=== PATIENT | female | born 1990 | race Two or more races ===

== ENCOUNTER 2016-09-01 22:35 | Inpatient (IN) | payer OTHER ==
[~2016-09-01] VITALS: Ht 165.1 cm; Wt 49.9 kg
[2016-09-01] MEDS ORDERED: MAGNESIUM HYDROXIDE 30 ML UDC PO PRN (23:00)
[2016-09-01] MEDS ORDERED: Z GUARD REMEDY 2 OZ OINT TP PRN (23:00)
[2016-09-01] MEDS ORDERED: CEFTRIAXONE 1 G in IV D5W 50 ML IV SCH (23:00)
[2016-09-01] MEDS ORDERED: MAG HYDROX/AL HYDROX/SIMETH 30 ML UDC PO PRN (23:00)
[2016-09-01] MEDS ORDERED: ONDANSETRON HCL/PF 4 MG/2 ML VIAL IVP PRN (23:00)
[2016-09-01] MEDS ORDERED: ZOLPIDEM TARTRATE 5 MG TABLET PO PRN (23:00)
[2016-09-01] MEDS ORDERED: ACETAMINOPHEN 325 MG TABLET PO PRN (23:00)
[2016-09-01 23:04] VITALS: BP 113/69
--- NOTE | 2016-09-01 23:04 | NUR ---
TELE OPENING NOTES: RECEIVED PT FROM [facility] IN [facility]. PT SHOWS NO SIGNS OR SYMPTOMS OF DISTRESS NOTED AT THIS TIME. RECEIVED REPORT FROM [facility] THAT TYLENOL 750MG IV WAS GIVEN, ROCEPHIN 2G, AND TOTAL OF 2L NS BOLUS. PT HAS IV R AC 18G AND IS PATENT AND INTACT AND IS BEING INFUSED WITH IV 0.9% NS 1,000ML AT 100ML/HR. MRSA SWAB DONE. PT'S VITAL SIGNS ARE STABLE. WILL CONTINUE TO MONITOR PT.
--- NOTE | 2016-09-01 23:04 | NUR ---
FRAUD MANAGER NOTES: NOTED REDNESS IN PT'S R EYE. PT REPORTED THAT IT RESULTED FROM HER MIGRAINE.
[2016-09-01 23:44] VITALS: BP 113/69
--- NOTE | 2016-09-02 | NUR ---
ATHLETIC COORDINATOR NOTES: CALL LIGHT WITHIN PT'S REACH. BED KEPT IN LOCKED, LOWEST POSITION, AND SIDE RAILS X 2 UP. CHARGE NURSE AWARE THAT I NON-ADMINISTERED ROCEPHIN. PT RECEIVED ROCEPHIN 2G AT [facility]. WILL CONTINUE TO MONITOR PT.
[2016-09-02] MEDS ORDERED: IV SET PRIMARY PUMP SET 1 EA INFUS.SET MC ONE (00:25)
[2016-09-02] MEDS ORDERED: IV NS 0.9% 1,000 ML ONE (00:25)
[2016-09-02] MEDS: IV NS 0.9% 1,000 ML IV PRN ×2 (00:33→11:42)
[2016-09-02 04:00] VITALS: BP 112/65
[2016-09-02] MEDS ORDERED: MORPHINE SULFATE INJ 2 MG/ML DISP.SYRIN ONE (05:51)
[2016-09-02] MEDS: MORPHINE SULFATE INJ 2 MG/ML DISP.SYRIN IV PRN ×4 (05:59→23:14)
--- NOTE | 2016-09-02 05:59 | NUR ---
SOFTWARE QUALITY MANAGER NOTES: PT COMPLAINED OF LOWER BACK PAIN RADIATING TO UPPER BACK 10/31. PT REQUESTED FOR PAIN MEDICATION. VITALS ARE: 112/78 HR 101, PULSE OX 100%, RR 18, TEMP 98.2 . MORPHINE 2MG IV WAS GIVEN. WILL CONTINUE TO MONITOR PT.
[2016-09-02 06:29] VITALS: BP 108/70
--- NOTE | 2016-09-02 07:13 | NUR ---
AQUACULTURE AND FISHERIES PROFESSOR CLOSING NOTES: ALL NEEDS WERE ATTENDED AND ANTICIPATED FOR. PT REPORTED THAT HER PAIN LEVEL WENT DOWN AFTER THE MORPHINE ADMINISTRATION. CALL LIGHT WITHIN PT'S REACH. BED KEPT IN LOCKED, LOWEST POSITION, AND SIDE RAILS X 2 UP. IV IS BEING INFUSED WITH NS 1,000ML AT 100ML/HR. ENDORSED TO AM NURSE FOR ROSELYN.
--- NOTE | 2016-09-02 07:14 | NUR ---
SAMPLE PREPARATION SUPERVISOR CLOSING NOTES: PT ON TELE MONITOR AND IS SR 88.
[2016-09-02 07:17] LABS: BASOPHILS % (AUTO) 0.3 % (0.0-2.0); EOSINOPHILS % (AUTO) 0.5 % (0.0-6.0); HEMATOCRIT 31 % (33-45); HEMOGLOBIN 10.4 g/dL (11.5-14.8); MEAN CORPUSCULAR HEMOGLOBIN 29 PG (26.0-33.0); MEAN CORPUSCULAR HGB CONC 34 g/dl (31.0-36.0); MEAN CORPUSCULAR VOLUME 86 fL (82-100); MONOCYTES # (AUTO) 0.6 /CMM (0.1-1.30); MONOCYTES % (AUTO) 7.8 % (2.0-12.0); NEUTROPHILS % (AUTO) 78.4 % (43.0-81.0); PLATELET COUNT (AUTO) 241 /CMM (150-450); RDW COEFFICIENT OF VARIATION 15.5 (11.5-15.0); RED BLOOD CELL COUNT(AUTO) 3.57 MIL/uL (4.0-5.2); WHITE BLOOD COUNT (AUTO) 7.7 K/uL (4.3-11.0)
--- NOTE | 2016-09-02 07:34 | NUR ---
HUMAN RESOURCES BENEFITS ASSISTANT OPENING NOTES RECEIVED PT. IN BED, AWAKE, HOB ELEVATED, NO SOB OR DISTRESS NOTED. A/O X4 VERBALLY RESPONSIVE AND ABLE TO MAKE NEEDS KNOWN. IV INTACT AND PATENT. KEPT PATIENT CLEAN AND COMFORTABLE IN BED, CALL LIGHT WITHIN PATIENT REACH, WILL CONTINUE TO MONITOR ACCORDINGLY.
[2016-09-02 07:40] LABS: ALBUMIN 2.8 g/dL (3.4-5.0); BILIRUBIN,TOTAL 0.4 mg/dL (0.2-1.0); CALCIUM, SERUM 7.8 mg/dL (8.5-10.1); CREATININE 0.7 mg/dL (0.6-1.3); MAGNESIUM 1.8 mg/dL (1.8-2.4); PHOSPHORUS 4.2 mg/dL (2.5-4.9); POTASSIUM 3.9 mmol/L (3.5-5.1); TOTAL PROTEIN, SERUM 6.3 g/dL (6.4-8.2)
[2016-09-02] MEDS: PANTOPRAZOLE 40 MG TABLET.DR PO SCH (08:14)
[2016-09-02 11:19] LABS: AMYLASE 69 U/L (25-115); LIPASE 149 U/L (73-393)
--- NOTE | 2016-09-02 12:47 | NUR ---
SPOKE WITH ROSALIA GNOG. AWAITING TEST RESULTS PRIOR TO COMPLETING CT ABDOMEN PELVIS WITHOUT CONTRAST. RN WILL CALL WHEN PATIENT IS READY.
[2016-09-02 14:55] LABS: APPEARANCE,URINE SL CLOUDY (CLEAR); BILIRUBIN,URINE NEGATIVE (NEGATIVE); BLOOD, URINE 1+ Ery/uL (NEGATIVE); COLOR,URINE YELLOW (YELLOW); KETONES,URINE NEGATIVE (NEGATIVE); LEUKOCYTE ESTERASE ,URINE 1+ (NEGATIVE); NITRITE, URINE NEGATIVE (NEGATIVE); PH,URINE 5.5 (5.0-8.0); PROTEIN,URINE NEGATIVE (NEGATIVE); UGLUCOSE NEGATIVE (NEGATIVE); UROBILINOGEN,URINE 0.2 EU/dL (0.2)
[2016-09-02 15:03] LABS: BACTERIA,URINE 1+ /HPF (None Seen)
[2016-09-02 16:00] VITALS: BP 117/71
--- NOTE | 2016-09-02 19:00 | NUR ---
MS RN OPENING NOTES: RECEIVED PT IN BED AND IS AWAKE, A/O X 4. FAMILY MEMBERS AT BEDSIDE. PT HAS IV ON R AC 18G AND IS BEING INFUSED WITH IV NS 1,000ML AT 100ML/HR. CALL LIGHT WITHIN PT'S REACH. BED KEPT IN LOCKED, LOWEST POSITION, AND SIDE RAILS X 2 UP. NO S/S OF DISTRESS NOTED AT THIS TIME. WILL CONTINUE TO MONITOR PT.
--- NOTE | 2016-09-02 19:28 | NUR ---
RN CLOSING NOTES ALL NEEDS PROVIDED, ATTENDED, AND ANTICIPATED. KEPT PATIENT CLEAN AND COMFORTABLE IN BED. CALL LIGHT WITHIN PATIENT REACH, WILL CONTINUE TO MONITOR ACCORDINGLY. ENDORSED TO NEXT SHIFT RN TO CONTINUE CARE
--- NOTE | 2016-09-02 19:29 | NUR ---
RN NOTES PATIENT WAS BLEEDING WHEN SHE WAS URINATING. CHARGE NURSE JESSE AWARE AND SHE SAID TO ENCOURAGE HER TO DRINK MORE WATER AND CRANBERRY JUICE AND KEEP MONITORING HER.
[2016-09-02] MEDS ORDERED: SECONDARY IV SET 1 EA INFUS.SET MC ONE (19:58)
[2016-09-02 20:00] VITALS: BP 124/72
[2016-09-02] MEDS: CEFTRIAXONE 1 G in IV D5W 50 ML IV SCH (20:03)
--- NOTE | 2016-09-02 21:53 | NUR ---
MS RN NOTES: PT HAD HEMATURIA SHOWN IN THE HAT. PAGED DR. MCKEON ABOUT BLOOD IN URINE.
--- NOTE | 2016-09-02 22:02 | NUR ---
MS RN NOTES: SPOKE TO DR. MCKEON AND HE ORDERED FOR A UA AND URINE CULTURE AND TO MONITOR PT'S URINE.
--- NOTE | 2016-09-02 23:14 | NUR ---
MS RN NOTES: PT COMPLAINED OF 9/10 BACK AND AB PAIN. PT WAS ADMINISTERED MORPHINE 2MG IV. PT'S BP WAS 114/56, HR 96. WILL CONTINUE TO MONITOR PT.
[2016-09-03 01:48] LABS: APPEARANCE,URINE SL CLOUDY (CLEAR); BILIRUBIN,URINE NEGATIVE (NEGATIVE); BLOOD, URINE 3+ Ery/uL (NEGATIVE); COLOR,URINE YELLOW (YELLOW); KETONES,URINE NEGATIVE (NEGATIVE); LEUKOCYTE ESTERASE ,URINE NEGATIVE (NEGATIVE); NITRITE, URINE NEGATIVE (NEGATIVE); PH,URINE 5.5 (5.0-8.0); PROTEIN,URINE NEGATIVE (NEGATIVE); UGLUCOSE NEGATIVE (NEGATIVE); UROBILINOGEN,URINE 0.2 EU/dL (0.2)
[2016-09-03 02:04] LABS: BACTERIA,URINE None seen /HPF (None Seen); RBC,URINE 81-100 /HPF (0-2); SQUAMOUS EPITHELIAL CELL,UR Few /HPF (None Seen)
[2016-09-03] MEDS: IV NS 0.9% 1,000 ML IV PRN ×2 (03:24→21:46)
[2016-09-03] MEDS: MORPHINE SULFATE INJ 2 MG/ML DISP.SYRIN IV PRN (05:42)
--- NOTE | 2016-09-03 05:42 | NUR ---
MS RN NOTES: PT'S BP WAS 116/76 HR 84. PT COMPLAINED OF 8/10 AB AND BACK PAIN. PT WAS ADMINISTERED MORPHINE IV. WILL CONTINUE TO MONITOR PT.
[2016-09-03 06:56] LABS: BASOPHILS % (AUTO) 0.3 % (0.0-2.0); EOSINOPHILS # (AUTO) 0.1 /CMM (0.0-0.7); EOSINOPHILS % (AUTO) 0.7 % (0.0-6.0); HEMATOCRIT 31 % (33-45); HEMOGLOBIN 10.8 g/dL (11.5-14.8); LYMPHOCYTES # (AUTO) 1.6 /CMM (0.8-4.8); LYMPHOCYTES % (AUTO) 21.1 % (20.0-44.0); MEAN CORPUSCULAR HEMOGLOBIN 30 PG (26.0-33.0); MEAN CORPUSCULAR HGB CONC 35 g/dl (31.0-36.0); MEAN CORPUSCULAR VOLUME 86 fL (82-100); MONOCYTES # (AUTO) 0.5 /CMM (0.1-1.30); MONOCYTES % (AUTO) 6.8 % (2.0-12.0); NEUTROPHILS # (AUTO) 5.4 /CMM (1.8-8.9); NEUTROPHILS % (AUTO) 71.1 % (43.0-81.0); PLATELET COUNT (AUTO) 254 /CMM (150-450); RDW COEFFICIENT OF VARIATION 15.9 (11.5-15.0); RED BLOOD CELL COUNT(AUTO) 3.62 MIL/uL (4.0-5.2); WHITE BLOOD COUNT (AUTO) 7.6 K/uL (4.3-11.0)
[2016-09-03 07:15] LABS: CALCIUM, SERUM 7.8 mg/dL (8.5-10.1); CREATININE 0.6 mg/dL (0.6-1.3); MAGNESIUM 1.8 mg/dL (1.8-2.4); PHOSPHORUS 4.3 mg/dL (2.5-4.9); POTASSIUM 3.8 mmol/L (3.5-5.1)
--- NOTE | 2016-09-03 07:15 | NUR ---
RN MS CLOSING NOTES: ALL NEEDS WERE ATTENDED AND ANTICIPATED FOR. NO SIGNS OR SYMPTOMS OF DISTRESS NOTED AT THIS TIME. PT IS IN BED ASLEEP AND IS RESTING IN BED. PT IS A/O X4. CALL LIGHT WITHIN PT'S REACH. BED KEPT IN LOCKED, LOWEST POSITION, AND SIDE RAILS X 2 UP. ENDORSED TO AM NURSE FOR ROSELYN.
--- NOTE | 2016-09-03 07:23 | NUR ---
GREEN MEAT GRADER OPENING NOTES RECEIVED PT. IN BED, AWAKE, HOB ELEVATED, NO SOB OR DISTRESS NOTED. A/O X4 VERBALLY RESPONSIVE AND ABLE TO MAKE NEEDS KNOWN. IV INTACT AND PATENT. KEPT PATIENT CLEAN AND COMFORTABLE IN BED, CALL LIGHT WITHIN PATIENT REACH, WILL CONTINUE TO MONITOR ACCORDINGLY
[2016-09-03] MEDS: PANTOPRAZOLE 40 MG TABLET.DR PO SCH (07:56)
[2016-09-03 08:00] VITALS: BP 105/58
--- NOTE | 2016-09-03 11:30 | NUR ---
RN MS NOTES MOM AT THE BEDSIDE.
[2016-09-03] MEDS: HYDROCODONE/APAP 5/325MG 1 EACH TABLET PO PRN ×2 (12:33→21:42)
--- NOTE | 2016-09-03 12:35 | NUR ---
RN NOTES PATIENT IS ASLEEP WITH NO SIGNS OF SOB, DISTRESS OR PAIN NOTED.
[2016-09-03 16:00] VITALS: BP 117/75
--- NOTE | 2016-09-03 19:30 | NUR ---
RN NOTES: -RECEIVED LYING COMFORTABLY IN BED,ALERT AND COHERENT X4 WITH BRP,IVF OF NS AT 100CC/HR ONGOING ATTACHED TO RIGHT AC G-18, PATENT, NO PAIN AND DISCOMFORT UPON ENDORSEMENT,KEPT COMFORTABLE IN BED, CALL LIGHT WITHIN EASY REACH, FALL AND SAFETY PRECAUTION OBSERVE.
[2016-09-03 20:00] VITALS: BP 106/67
[2016-09-03] MEDS: CEFTRIAXONE 1 G in IV D5W 50 ML IV SCH (20:32)
--- NOTE | 2016-09-03 21:45 | NUR ---
RN NOTES: -AT 2141 COMPLAINED OF ABDOMINAL PAIN OF 6/10, OFFERED ORAL PAIN RELIEVER, SHE AGREED,NON PHARMACOLOGIC INTERVENTION RENDERED,BACK RUB AND WARM BLANKET,CALL LIGHT WITHIN REACH, ASSISTED TO BATHROOM.
--- NOTE | 2016-09-03 21:50 | NUR ---
RN NOTES: AWAKE,SHE HAS A VISITOR, IVF CONSUMED, NEW BAG STARTED NS AT 100ML/HR VIA PUMP.KEPT ON CLOSE WATCH.
[2016-09-04] MEDS: MORPHINE SULFATE INJ 2 MG/ML DISP.SYRIN IV PRN ×3 (00:40→20:01)
--- NOTE | 2016-09-04 00:40 | NUR ---
RN NOTES; PATIENT WAS RELIEVED ONLY FOR FEW HOURS AGAIN PAIN INCREASE 10/10,SHE REQUEST FOR MORPHINE, BPR-113/62 VT-81,IV FLUIDS 100CC/HR ONGOING, IV/PRN FOR PAIN GIVEN.CALL LIGHT WITHIN REACH.
--- NOTE | 2016-09-04 02:10 | NUR ---
RN NOTES: PATIENT FALL ASLEEP,KEPT IN COMFORTABLE POSITION,CALL LIGHT WITHIN REACH.
--- NOTE | 2016-09-04 06:21 | NUR ---
RN NOTES: -ABLE TO SLEEP WELL AFTER HER IV/PAIN RELIEVER, ENDORSED ASLEEP FOR CONTINUITY OF CARE, CALL LIGHT WITHIN REACH.
--- NOTE | 2016-09-04 07:30 | NUR ---
RECEIVED PT. ALERT AND ORIENTED X4.
[2016-09-04 08:00] VITALS: BP 105/69
[2016-09-04] MEDS: PANTOPRAZOLE 40 MG TABLET.DR PO SCH (08:10)
--- NOTE | 2016-09-04 08:10 | NUR ---
MEDICATED FOR ABD. PAIN WITH MORPHINE.[place] HOFF TO SEE PT.
[2016-09-04] MEDS: IV NS 0.9% 1,000 ML IV PRN (08:51)
[2016-09-04] MEDS: IBUPROFEN 400 MG TABLET PO PRN (10:04)
--- NOTE | 2016-09-04 10:04 | NUR ---
MED. WITH MOTRIN FOR DISCOMFORT.
--- NOTE | 2016-09-04 12:45 | NUR ---
CASE MGMT. IN TO SPEAK WITH PT. REGARDING DC PLANNING. Addendum: 09/04/16 at 1458 by JODY BOWLING RN ABOVE NOTE MEANT FOR ANOTHER PT.
--- NOTE | 2016-09-04 12:45 | NUR ---
giovanni franco nurse in with [employer] plans staff officer and dressing changed to rt. foot.tolerated well. Addendum: 09/04/16 at 1452 by JODY BOWLING RN ABOVE NOTE INCORRECT TO BE ON DIFFERENT PT.
[2016-09-04 16:00] VITALS: BP 130/77
--- NOTE | 2016-09-04 16:30 | NUR ---
RESTING IN BED.
--- NOTE | 2016-09-04 18:00 | NUR ---
GOOD EFFECT WITH MOTRIN-NO FURTHER PAIN MED THIS SHIFT.
--- NOTE | 2016-09-04 19:30 | NUR ---
RN OPENING NOTES RECEIVED REPORT FROM RALPH RNJODY. FOUND Pt AWAKE RESTING IN BED. NO S/S OF ACUTE DISTRESS OR SOB NOTED. Pt IS A/OX4, VERBAL, ABLE TO MAKE NEEDS KNOWN. Pt C/O PAIN AND IS REQUESTING FOR MORPHINE. WILL ADMINISTER WHEN TIME IS DUE. IV ACCESS ON RAC #18G, IVF NS @100ML/HR. SAFETY MEASURES IN PLACE. BED LOW, LOCKED, HOB ELEVATED, SIDE RAILS UP, CALL LIGHT AND BEDSIDE TABLE WITHIN REACH. WILL CONTINUE TO MONITOR Pt THROUGHOUT THE NIGHT FOR SAFETY.
[2016-09-04 20:00] VITALS: BP 118/69
[2016-09-04] MEDS: CEFTRIAXONE 1 G in IV D5W 50 ML IV SCH (21:48)
[2016-09-04 22:00] VITALS: BP 118/69
--- NOTE | 2016-09-05 06:34 | NUR ---
RN CLOSING NOTES NO SIGNIFICANT CHANGES NOTED DURING THE NIGHT. ALL NEEDS MET AND ATTENDED TO. NO S/S OF ACUTE DISTRESS OR SOB NOTED. SAFETY MEASURES IN PLACE. WILL ENDORSE TO DAYSHIFT RN FOR Pt's ROSELYN.
[2016-09-05] MEDS: IV NS 0.9% 1,000 ML IV PRN (07:00)
[2016-09-05] MEDS: IBUPROFEN 400 MG TABLET PO PRN (07:05)
[2016-09-05 08:00] VITALS: BP 108/62
[2016-09-05] MEDS ORDERED: HYDR-3652 PO (08:06)
[2016-09-05] MEDS ORDERED: SULF1TAB48 PO (08:06)
[2016-09-05] MEDS: PANTOPRAZOLE 40 MG TABLET.DR PO SCH (09:13)
--- NOTE | 2016-09-05 12:00 | NUR ---
PT PICKED UP BY FAMILY MOTHER, DISCHARGE INSTRUCTION GIVEN, IV D/C, PT IN STABLE CONDITION
== END 2016-09-05 11:55 | disposition home or self-care (01) | DRG 463 ==
LOC: TELE 23:40 → MED 09-02 10:55
PROVIDERS: ADMIT Family Medicine; ATTEND Family Medicine
DX: N39.0 Urinary tract infection, site not specified (principal); E44.0 Moderate protein-calorie malnutrition; N20.0 Calculus of kidney; E83.51 Hypocalcemia; R63.0 Anorexia; E88.09 Other disorders of plasma-protein metabolism, not elsewhere classified; D64.9 Anemia, unspecified; Z68.1 Body mass index [BMI] 19.9 or less, adult; B96.89 Other specified bacterial agents as the cause of diseases classified elsewhere; R31.9 Hematuria, unspecified; F32.9 Major depressive disorder, single episode, unspecified
CPT/HCPCS: 36415; 80048-TC; 80053-TC; 81000-TC; 82150-TC; 83605-TC; 83690-TC; 83735-TC; 84100-TC; 84703-TC; 85025-TC; 87040-TC; 87081-TC; 87086-TC; J0696; J2270; J7030; J7060; Z7610

== ENCOUNTER 2016-12-02 18:57 | Emergency (ER) | payer OTHER ==
[~2016-12-02] VITALS: Ht 165.1 cm; Wt 57.6 kg
[~2016-12-02 18:57] MED LIST: HYDR-3652 PO; SULF1TAB48 PO
--- NOTE | 2016-12-02 19:55 | NUR ---
TO BED 4 AMBULATORY C/O INTERMITTENT BILATERAL FLANK PAIN X1 MONTH. PT AAOX4 NO ACUTE DISTRESS NOTED, RESP EVEN AND UNLABORED. URINE SAMPLE COLLECTED. PENDING ER MD CARRERA.
[2016-12-02 20:00] LABS: APPEARANCE,URINE Cloudy (CLEAR); BILIRUBIN,URINE SMALL (NEGATIVE); BLOOD, URINE Moderate Ery/uL (NEGATIVE); COLOR,URINE Dark (YELLOW); KETONES,URINE 40 (NEGATIVE); LEUKOCYTE ESTERASE ,URINE Trace (NEGATIVE); NITRITE, URINE Positive (NEGATIVE); PROTEIN,URINE 100 mg/dl (NEGATIVE); UGLUCOSE Negative (NEGATIVE)
[2016-12-02] MEDS ORDERED: ONDANSETRON HCL/PF 4 MG/2 ML VIAL IVP ONE (20:00)
[2016-12-02] MEDS ORDERED: MORPHINE SULFATE INJ 2 MG/ML DISP.SYRIN IV ONE (20:00)
[2016-12-02] MEDS ORDERED: IV NS 0.9% 1,000 ML BAG IV ONE (20:00)
[2016-12-02] MEDS ORDERED: KETOROLAC TROMETHAMINE INJ 30 MG/ML VIAL IV ONE (20:00)
[2016-12-02] MEDS ORDERED: KETOROLAC TROMETHAMINE INJ 30 MG/ML VIAL ONE (20:02)
[2016-12-02] MEDS ORDERED: MORPHINE SULFATE INJ 4 MG/ML DISP.SYRIN ONE (20:03)
[2016-12-02] MEDS ORDERED: ONDANSETRON HCL/PF 4 MG/2 ML VIAL ONE (20:03)
[2016-12-02 20:04] LABS: BASOPHILS % (AUTO) 0.7 % (0.0-2.0); EOSINOPHILS % (AUTO) 0.8 % (0.0-6.0); HEMATOCRIT 35 % (33-45); HEMOGLOBIN 11.3 g/dL (11.5-14.8); LYMPHOCYTES # (AUTO) 1.6 /CMM (0.8-4.8); LYMPHOCYTES % (AUTO) 28.3 % (20.0-44.0); MEAN CORPUSCULAR HEMOGLOBIN 26 PG (26.0-33.0); MEAN CORPUSCULAR HGB CONC 32 g/dl (31.0-36.0); MEAN CORPUSCULAR VOLUME 81 fL (82-100); MONOCYTES # (AUTO) 0.4 /CMM (0.1-1.30); MONOCYTES % (AUTO) 7.1 % (2.0-12.0); NEUTROPHILS # (AUTO) 3.6 /CMM (1.8-8.9); NEUTROPHILS % (AUTO) 63.1 % (43.0-81.0); PLATELET COUNT (AUTO) 382 /CMM (150-450); RDW COEFFICIENT OF VARIATION 15.9 (11.5-15.0); RED BLOOD CELL COUNT(AUTO) 4.33 MIL/uL (4.0-5.2); WHITE BLOOD COUNT (AUTO) 5.6 K/uL (4.3-11.0)
[2016-12-02 20:07] LABS: PREGNANCY TEST URINE QUAL NEGATIVE (NEGATIVE)
--- NOTE | 2016-12-02 20:09 | NUR ---
TP MEDICATED BY RN PER ER MD ORDER.
[2016-12-02 20:12] LABS: CALCIUM, SERUM 8.9 mg/dL (8.5-10.1); CREATININE 0.8 mg/dL (0.6-1.3); POTASSIUM 3.2 mmol/L (3.5-5.1)
[2016-12-02 20:18] LABS: BACTERIA,URINE 3+ /HPF (None Seen); MUCUS,URINE Moderate /LPF (None Seen); SQUAMOUS EPITHELIAL CELL,UR Many /HPF (None Seen); URINE AMORPHOUS URATE Moderate /HPF (None Seen); WBC,URINE 51-80 /HPF (0-3)
[2016-12-02] MEDS ORDERED: CEFTRIAXONE 1GM BAG (ER ONLY) 50 ML IV ONE (20:29)
[2016-12-02] MEDS ORDERED: CEFTRIAXONE 1GM BAG (ER ONLY) 1 GM/50 ML PIGGYBACK IV ONE (20:30)
--- NOTE | 2016-12-02 21:34 | NUR ---
Patient discharged to home in stable condition. Written and verbal after care instructions given. Patient verbalizes understanding of instruction. ambulatory with a steady gait noted. pt aaox4 no acute distress noted, resp even and unlabored. advice pt not to drive or operate any machinery due to pt was given anrcotic medicine. pt verbalize understanding.
[2016-12-02 21:35] VITALS: BP 132/69
== END 2016-12-02 21:36 | disposition home or self-care (01) ==
LOC: ER 18:58
DX: S39.011A Strain of muscle, fascia and tendon of abdomen, initial encounter (principal); N12 Tubulo-interstitial nephritis, not specified as acute or chronic; F32.9 Major depressive disorder, single episode, unspecified; Z88.8 Allergy status to other drugs, medicaments and biological substances; K29.70 Gastritis, unspecified, without bleeding; X58.XXXA Exposure to other specified factors, initial encounter; Y93.89 Activity, other specified; Y92.89 Other specified places as the place of occurrence of the external cause; Y99.9 Unspecified external cause status
CPT/HCPCS: 36415; 80048; 81001; 84703; 85025; 87040 ×2; 87077; 87086; 87186; 96365; 96375; 99284; A4606; J0696; J1885; J2270; J2405; J7030; Z7610; 81000-TC

== ENCOUNTER 2017-03-18 16:04 | Emergency (ER) | payer OTHER ==
[~2017-03-18] VITALS: Ht 165.1 cm; Wt 54.4 kg
[~2017-03-18 16:04] MED LIST changes: -HYDR-3652 PO; +HYDR-4209 PO
--- NOTE | 2017-03-18 16:04 | NUR ---
LOW BACK PAIN X 2 DAYS, DYSURIA X 3 WKS. NAD NOTED. PT AAO X4, AMB WITH STEADY GAIT. RR EVEN AND UNLABORED. VSS. URINE SAMPLE PROVIDED. GOPAL FLAT SORTER PROCESSOR AT BEDSIDE FOR EVAL.
[2017-03-18 16:27] LABS: APPEARANCE,URINE Clear (CLEAR); BILIRUBIN,URINE Negative (NEGATIVE); BLOOD, URINE Moderate Ery/uL (NEGATIVE); COLOR,URINE Yellow (YELLOW); KETONES,URINE Trace (NEGATIVE); LEUKOCYTE ESTERASE ,URINE Negative (NEGATIVE); NITRITE, URINE Negative (NEGATIVE); PH,URINE 5.5 (5.0-8.0); PROTEIN,URINE Trace mg/dl (NEGATIVE); UGLUCOSE Negative (NEGATIVE); UROBILINOGEN,URINE 0.2 EU/dL (0.2)
[2017-03-18 16:29] LABS: BACTERIA,URINE Few /HPF (None Seen); RBC,URINE 0-2 /HPF (0-2)
[2017-03-18] MEDS ORDERED: MORPHINE SULFATE INJ 4 MG/ML DISP.SYRIN ONE (16:29)
[2017-03-18 16:30] LABS: SQUAMOUS EPITHELIAL CELL,UR Moderate /HPF (None Seen)
[2017-03-18] MEDS ORDERED: ONDANSETRON HCL/PF 4 MG/2 ML VIAL IVP ONE (16:30)
[2017-03-18] MEDS ORDERED: ACETAMINOPHEN ES 500 MG TABLET PO ONE (16:30)
[2017-03-18] MEDS ORDERED: ONDANSETRON 4 MG TAB.RAPDIS ONE (16:30)
[2017-03-18] MEDS ORDERED: MORPHINE SULFATE INJ 2 MG/ML DISP.SYRIN IV ONE (16:30)
[2017-03-18] MEDS ORDERED: IV NS 0.9% 1,000 ML BAG IV ONE (16:30)
[2017-03-18] MEDS ORDERED: ACETAMINOPHEN ES 500 MG TABLET ONE (16:30)
[2017-03-18] MEDS ORDERED: ONDANSETRON HCL/PF 4 MG/2 ML VIAL ONE (16:34)
[2017-03-18 16:46] LABS: BASOPHILS % (AUTO) 0.6 % (0.0-2.0); EOSINOPHILS % (AUTO) 0.1 % (0.0-6.0); HEMATOCRIT 32 % (33-45); HEMOGLOBIN 10.9 g/dL (11.5-14.8); LYMPHOCYTES # (AUTO) 0.7 /CMM (0.8-4.8); MEAN CORPUSCULAR HEMOGLOBIN 26 PG (26.0-33.0); MEAN CORPUSCULAR HGB CONC 34 g/dl (31.0-36.0); MEAN CORPUSCULAR VOLUME 78 fL (82-100); MONOCYTES # (AUTO) 0.4 /CMM (0.1-1.30); MONOCYTES % (AUTO) 6.3 % (2.0-12.0); NEUTROPHILS # (AUTO) 4.6 /CMM (1.8-8.9); PLATELET COUNT (AUTO) 364 /CMM (150-450); RDW COEFFICIENT OF VARIATION 16.4 (11.5-15.0); RED BLOOD CELL COUNT(AUTO) 4.14 MIL/uL (4.0-5.2); WHITE BLOOD COUNT (AUTO) 5.7 K/uL (4.3-11.0)
[2017-03-18 16:56] LABS: CALCIUM, SERUM 8.1 mg/dL (8.5-10.1); CREATININE 0.7 mg/dL (0.6-1.3); POTASSIUM 3.6 mmol/L (3.5-5.1)
[2017-03-18 17:18] VITALS: BP 124/68
== END 2017-03-18 17:31 | disposition home or self-care (01) ==
LOC: ER 16:07
DX: N12 Tubulo-interstitial nephritis, not specified as acute or chronic (principal); J11.1 Influenza due to unidentified influenza virus with other respiratory manifestations; F32.9 Major depressive disorder, single episode, unspecified; Z88.8 Allergy status to other drugs, medicaments and biological substances
CPT/HCPCS: 36415; 80048; 81001; 84703; 85025; 87086; 96361; 96374; 96375; 99284; J2270; J2405; J7030; Q0162; 81000-TC

== ENCOUNTER 2017-03-23 01:12 | Emergency (ER) | payer OTHER ==
[~2017-03-23] VITALS: Ht 165.1 cm; Wt 54.4 kg
[~2017-03-23 01:12] MED LIST changes: +HYDR-3652 PO; -HYDR-4209 PO
--- NOTE | 2017-03-23 01:50 | NUR ---
CALLED PT IN WR X 3, NO RESPONSE , PER ADMITTING PT STEPPED OUT.
[2017-03-23 02:06] VITALS: BP 129/81
[2017-03-23 02:52] LABS: APPEARANCE,URINE CLEAR (CLEAR); BILIRUBIN,URINE NEGATIVE (NEGATIVE); BLOOD, URINE TRACE-INTA Ery/uL (NEGATIVE); COLOR,URINE YELLOW (YELLOW); KETONES,URINE TRACE (NEGATIVE); LEUKOCYTE ESTERASE ,URINE NEGATIVE (NEGATIVE); NITRITE, URINE NEGATIVE (NEGATIVE); PROTEIN,URINE NEGATIVE (NEGATIVE); UGLUCOSE NEGATIVE (NEGATIVE); UROBILINOGEN,URINE 0.2 EU/dL (0.2)
[2017-03-23 02:57] LABS: BACTERIA,URINE Moderate /HPF (None Seen); RBC,URINE 0-2 /HPF (0-2); SQUAMOUS EPITHELIAL CELL,UR Moderate /HPF (None Seen)
[2017-03-23] MEDS ORDERED: ACETAMINOPHEN ES 500 MG TABLET ONE (04:24)
[2017-03-23] MEDS ORDERED: ACETAMINOPHEN 325 MG TABLET PO ONE (04:30)
== END 2017-03-23 04:29 | disposition home or self-care (01) ==
LOC: ER 01:18
DX: M54.5 Low back pain (principal); M79.1 Myalgia; Z88.8 Allergy status to other drugs, medicaments and biological substances
CPT/HCPCS: 81001; 82962; 84703; 87077; 87086; 87186; 99284; A4606; Z7610; 81000-TC